=== PATIENT | female | born 1980 | race Caucasian/White ===

== ENCOUNTER 2018-01-09 10:36 | Emergency (ER) | END 2018-01-09 13:42 | disposition home or self-care (01) ==

== ENCOUNTER 2019-04-06 15:20 | Emergency (ER) | payer OTHER ==
[~2019-04-06] VITALS: Ht 154.9 cm; Wt 80.0 kg
[~2019-04-06 15:20] MED LIST: IBUP-1542 PO; ONDA8TAB14 PO
[2019-04-06 15:26] VITALS: Ht 154.9 cm; Wt 80.0 kg
[2019-04-06] MEDS ORDERED: ONDANSETRON (ODT) 4 MG TAB ODT STA (15:46)
[2019-04-06] MEDS ORDERED: MECLIZINE 12.5 MG TAB PO ONE (16:00)
[2019-04-06] MEDS ORDERED: MECL-77 PO (17:03)
[2019-04-06] MEDS ORDERED: ONDA8TAB14 PO (17:03)
[2019-04-06 17:11] VITALS: BP 118/74; PULSE 71; RESP 18
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
== END 2019-04-06 17:12 | disposition home or self-care (01) ==
LOC: FTE 15:20
DX: R42 Dizziness and giddiness (principal); F17.210 Nicotine dependence, cigarettes, uncomplicated
CPT/HCPCS: 70450; 81003; 81025; 93005; Z7502; Z7610